=== PATIENT | male | born 1970 | race Caucasian/White ===

== ENCOUNTER 2017-02-15 20:44 | Emergency (ER) | payer OTHER ==
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
--- NOTE | 2017-02-15 22:17 | XR ---
EXAMINATION TYPE: XR pelvis AP view DATE OF EXAM: 02/15/2017 COMPARISON: NONE HISTORY: Pain TECHNIQUE: Single view FINDINGS: The pelvic ring is intact. There is no evidence of a fracture. Sacroiliac joints are intact . Proximal femurs appear intact. IMPRESSION: Negative pelvis exam.
[2017-02-15] MEDS ORDERED: KETOROLAC 60 MG/2 ML VIAL IM STA (22:27)
[2017-02-15 22:49] VITALS: BP 145/84; PULSE 85; RESP 17; TEMP 98.5
== END 2017-02-15 23:04 | disposition home or self-care (01) ==
LOC: EC 20:44
DX: S42.002A Fracture of unspecified part of left clavicle, initial encounter for closed fracture (principal); K21.9 Gastro-esophageal reflux disease without esophagitis; F17.200 Nicotine dependence, unspecified, uncomplicated; Z79.899 Other long term (current) drug therapy; V43.52XA Car driver injured in collision with other type car in traffic accident, initial encounter; Y92.410 Unspecified street and highway as the place of occurrence of the external cause
CPT/HCPCS: 71010; 72040; 72170; 73000; 99284; 96372; J1885

== ENCOUNTER → 2017-03-13 | Outpatient (CLI) | payer OTHER ==
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
== END | disposition home or self-care (01) ==
LOC: RADCTMAIN 07:42
PROVIDERS: ATTEND Orthopaedic Surgery
DX: S42.022A Displaced fracture of shaft of left clavicle, initial encounter for closed fracture (principal)

== ENCOUNTER → 2020-07-01 | Outpatient (CLI) | payer BC ==
--- NOTE | 2020-07-06 18:12 | HM ---
CARDIAC ELECTROPHYSIOLOGY REPORT DCG: DATE OF SERVICE: July 01, 2020. INDICATION: Cardiac arrhythmia. REFERRING PHYSICIAN: Dr. Loaiza. The patient was monitored for 24 hours. The baseline rhythm appeared to be sinus mechanism. The minimum heart rate was 54. Max was 64 and average of 89 beats per minute. Ventricular ectopic events were seen rarely. Supraventricular ectopic events were seen rarely as well. The patient did have multiple episodes of sinus tachycardia with a sustained episode with heart rate more than 150 beats per minute and that was at 12:00 pm. No evidence of any advanced AV block. No evidence of sinus pause or sinus arrest. CONCLUSION: 1. Sinus rhythm as a baseline mechanism. 2. Rare ventricular ectopic events. 3. Rare supraventricular ectopic events. 4. No evidence of advanced AV block. 5. No evidence of sinus pause or sinus arrest. 6. The patient did have some sustained sinus tachycardia at 12:00 pm and evaluating the diary, he was doing some yard work at that time. MMODL / IJN: [id number] /
== END | disposition home or self-care (01) ==
LOC: RADECHMAIN 12:23
PROVIDERS: ATTEND Internal Medicine
DX: I49.9 Cardiac arrhythmia, unspecified (principal)
CPT/HCPCS: 93225; 93226

== ENCOUNTER → 2023-10-19 | Outpatient (CLI) | payer BC ==
[2023-10-19 13:10] LABS: Basophils # (A) 0.04 X 10*3/uL (0.00-0.10); Basophils % (A) 0.5 %; Eosinophils # (A) 0.06 X 10*3/uL (0.04-0.35); Eosinophils % (A) 0.8 %; HCT 46.5 % (39.6-50.0); HGB 15.6 g/dL (13.0-17.0); Lymphocytes # (A) 2.65 X 10*3/uL (0.90-5.00); MCH 30.5 pg (27.0-32.0); MCHC 33.5 g/dL (32.0-37.0); MCV 90.8 FL (80.0-97.0); Mean Platelet Volume 10.1 FL (9.5-12.2); Monocytes # (A) 0.66 X 10*3/uL (0.20-1.00); Monocytes % (A) 8.7 %; NRBC Per 100 WBC 0 X 10*3/uL (0.00-0.01); Neutrophils # (A) 4.13 X 10*3/uL (1.80-7.70); Neutrophils % (A) 54.5 %; Platelet Count 301 X 10*3/uL (140-440); RBC 5.12 X 10*6/uL (4.40-5.60); RDW 12.1 % (11.5-14.5); WBC 7.58 X 10*3/uL (4.50-10.00)
[2023-10-19 13:26] LABS: ALT 41 U/L (10-49); AST 23 U/L (14-35); Albumin 4.7 g/dL (3.8-4.9); Albumin/Globulin Ratio 2.04 Ratio (1.60-3.17); Alkaline Phosphatase 54 U/L (41-126); Blood Urea Nitrogen 12.1 mg/dL (9.0-27.0); Calcium 9.6 mg/dL (8.7-10.3); Carbon Dioxide 22.1 mmol/L (21.6-31.8); Chloride 107 mmol/L (96-109); Chol/HDL Ratio 4.93 Ratio; Globulin 2.3 g/dL (1.6-3.3); Glucose 112 mg/dL (70-110); LDL Cholesterol,Calculated 143.6 mg/dL (0.0-131.0); Potassium 4.3 mmol/L (3.5-5.5); Sodium 141 mmol/L (135-145); Total Bilirubin 0.5 mg/dL (0.3-1.2)
== END | disposition home or self-care (01) ==
LOC: LABWHC1 08:18
PROVIDERS: ATTEND Family Medicine
DX: Z00.00 Encounter for general adult medical examination without abnormal findings (principal)
CPT/HCPCS: 36415; 80053; 80061; 84443; 85025

== ENCOUNTER → 2024-01-14 | Outpatient (CLI) | payer BC ==
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
== END ==
LOC: RADXRMAIN 09:03
PROVIDERS: ATTEND Internal Medicine
CPT/HCPCS: 72040; 72070; 72100

== ENCOUNTER → 2024-01-24 | Outpatient (CLI) | payer BC ==
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
== END | disposition home or self-care (01) ==
LOC: RADCTMAIN 07:23
PROVIDERS: ATTEND Internal Medicine
DX: R55 Syncope and collapse (principal); V89.2XXA Person injured in unspecified motor-vehicle accident, traffic, initial encounter
CPT/HCPCS: 70470; Q9967